=== PATIENT | male | born 1970 | race Caucasian/White ===

== ENCOUNTER 2017-03-14 18:46 | Emergency (ER) | payer BC ==
[2017-03-14 18:46] VITALS: BP 149/95
[~2017-03-14 18:46] MED LIST: NO HOME MEDICATIONS; TEGRETOL X200 MG/TA1 PO
== END 2017-03-14 18:50 | disposition home or self-care (01) ==
LOC: ED 18:46
DX: Z48.02 Encounter for removal of sutures (principal)
CPT/HCPCS: A4649

== ENCOUNTER → 2018-02-05 | Day surgery (SDC) | payer BC | LOC: MSO 08:30 | DX: Z12.11 Encounter for screening for malignant neoplasm of colon (principal); G40.909 Epilepsy, unspecified, not intractable, without status epilepticus; I10 Essential (primary) hypertension; E78.5 Hyperlipidemia, unspecified; Z79.899 Other long term (current) drug therapy | CPT/HCPCS: 00812; J2704; J7120 ==

== ENCOUNTER → 2018-04-06 | Outpatient (CLI) | payer BC ==
[~2018-04-06] VITALS: Ht 175.3 cm; Wt 93.2 kg
[~2018-04-06] MED LIST changes: +ASTELIN NASAL S34 ML NS; +CALCIUM/MAGNESI1 T13 PO; +CORTISPORIN TP; +FISH OIL 1000MG1 CAP PO; +FLONASE ALLERG9.9 ML NS; +GLUCOSAMINE PO; +TERAZOSIN HCL2 M3 PO; +TURMERIC538 MG PO
[2018-04-06 12:58] VITALS: BP 160/102
== END ==
LOC: AMSURD 12:23
DX: I10 Essential (primary) hypertension (principal); E78.5 Hyperlipidemia, unspecified; F41.1 Generalized anxiety disorder; N40.1 Benign prostatic hyperplasia with lower urinary tract symptoms

== ENCOUNTER → 2019-06-28 | Outpatient (CLI) | payer BC ==
[2018-04-06 12:58] VITALS: BP 160/102
== END ==
LOC: CARDLAB 12:45 → CARDREHAB 16:02
DX: G47.34 Idiopathic sleep related nonobstructive alveolar hypoventilation (principal)
CPT/HCPCS: G0399

== ENCOUNTER → 2020-08-24 | Outpatient (REF) ==
[2018-04-06 12:58] VITALS: BP 160/102
== END ==
LOC: LAB 13:14
DX: E88.81 Metabolic syndrome and other insulin resistance (principal)

== ENCOUNTER → 2021-06-28 | Outpatient (CLI) | payer BC ==
[2021-06-28 14:47] LABS: ALBUMIN 4.2 g/dL (3.5-5.0)
[2021-06-28 14:50] LABS: TOTAL PROTEIN 7.4 g/dL (6.4-8.3)
[2021-06-28 14:52] LABS: TOTAL BILIRUBIN 0.3 mg/dL (0.2-1.2)
[2021-06-28 14:55] LABS: DIRECT BILIRUBIN 0.1 mg/dL (0.0-0.5)
== END ==
LOC: LAB 14:03
PROVIDERS: Family Medicine
DX: E11.9 Type 2 diabetes mellitus without complications (principal)

== ENCOUNTER → 2021-11-25 | Outpatient (REF) | LOC: LAB 08:03 | DX: G40.909 Epilepsy, unspecified, not intractable, without status epilepticus (principal); N13.8 Other obstructive and reflux uropathy; I10 Essential (primary) hypertension; F41.1 Generalized anxiety disorder; E88.81 Metabolic syndrome and other insulin resistance; E78.5 Hyperlipidemia, unspecified; E11.9 Type 2 diabetes mellitus without complications; E66.09 Other obesity due to excess calories ==

== ENCOUNTER 2023-07-19 00:16 | Emergency (ER) | payer BC ==
[~2023-07-19] VITALS: Ht 180.3 cm; Wt 107.4 kg
[~2023-07-19 00:16] MED LIST changes: +AMOXICILLIN AND1 TA2 PO; +ASPIRIN E.C. 8181 MG; +CETIRIZINE HCL10 MG PO; +EPITOL200 MG PO; +ESCITALOPRAM10 MG PO; +EZETIMIBE-SIMV1 EAC3 PO; +FLUTICASON0.05 MG/AC NS; +HYDROCHLOROTH12.5 M2 PO; +JARDIANCE10 MG PO; +LISINOPRIL20 MG PO; +METFORMIN ER500 MG PO; +MULTIVITAMIN1 EACH PO
[2023-07-19 02:35] VITALS: BP 131/87
== END 2023-07-19 02:45 | disposition home or self-care (01) ==
LOC: ED 00:16
DX: S09.90XA Unspecified injury of head, initial encounter (principal); S01.112A Laceration without foreign body of left eyelid and periocular area, initial encounter; Z23 Encounter for immunization; Z79.82 Long term (current) use of aspirin; W01.198A Fall on same level from slipping, tripping and stumbling with subsequent striking against other object, initial encounter
CPT/HCPCS: 90715